=== PATIENT | female | born 1940 ===

== ENCOUNTER 2018-10-06 15:59 | Outpatient (REF) | payer MEDICARE, SELFPAY ==
[2018-10-06 21:16] LABS: Abs Immature Grans 0.01 k/cumm (0.0-0.09); Absolute Basophil Count 0.02 k/cumm (0.0-0.2); Absolute Eosinophil Count 0.02 k/cumm (0.0-0.7); Absolute Lymphocyte Count 1.55 k/cumm (1.2-3.4); Basophils % 0.3; Eosinophils % 0.3; HCT 34.7 % (36.0-46.0); HGB 11.1 g/dL (12.0-15.5); Immature Grans % 0.2; Lymphocytes % 25.8; Mean Corpuscular Hemoglobin 28.8 pg (27.0-33.0); Mean Corpuscular Volume 90.1 fL (80-95); Mean Platelet Volume 8.9 fL (8.0-11.0); Monocytes % 8.3; Neutrophils % 65.1; Platelet Count 328 x1000/uL (130-400); RBC 3.85 m/cumm (4.00-5.20); RBC Distribution Width 11.9 % (11.7-14.6)
[2018-10-06 21:49] LABS: TSH (W/Ref FT4) 0.02 uIU/mL (0.358-3.74); Vitamin B12 494 pg/mL (193-986)
[2018-10-06 22:14] LABS: FREE T4 1.65 ng/dL (0.76-1.46)
[2018-10-09 12:04] LABS: Thyrotropin Receptor Ab <1.00 IU/L
== END 2018-10-06 16:19 ==
LOC: NCHCN 15:59
PROVIDERS: PCP Family Medicine; Visit Provider Family Medicine
DX: R00.2 Palpitations (principal); R00.0 Tachycardia, unspecified; R53.83 Other fatigue; M54.2 Cervicalgia; E05.90 Thyrotoxicosis, unspecified without thyrotoxic crisis or storm
CPT/HCPCS: 82607; 83735; 84235; 84439; 84443; 85025

== ENCOUNTER 2018-11-02 15:53 | Outpatient (REF) | payer MEDICARE, BC, SELFPAY ==
[2018-11-03 11:31] LABS: FREE T4 1.11 ng/dL (0.76-1.46)
[2018-11-03 18:09] LABS: T3, Total 126 ng/dl (97-169)
== END 2018-11-02 16:13 ==
LOC: NCHCN 15:53
PROVIDERS: PCP Family Medicine; Visit Provider Family Medicine
DX: E06.9 Thyroiditis, unspecified (principal)
CPT/HCPCS: 84439; 84443; 84480

== ENCOUNTER 2018-12-03 09:46 | Outpatient (REF) | payer MEDICARE, BC, SELFPAY ==
[2018-12-03 21:22] LABS: FREE T4 0.73 ng/dL (0.76-1.46); TSH 7.51 uIU/mL (0.358-3.74)
[2018-12-03 21:32] LABS: T4 6.9 ug/dL (4.5-12.5)
[2018-12-05 17:02] LABS: T3,Free 3.1 pg/ml (2.8-5.3)
[2018-12-05 17:17] LABS: T3, Total 111 ng/dl (97-169)
== END 2018-12-03 10:06 ==
LOC: NCHCN 09:46
PROVIDERS: Visit Provider Family Medicine
DX: E03.9 Hypothyroidism, unspecified (principal)
CPT/HCPCS: 84436; 84439; 84443; 84480; 84481

== ENCOUNTER 2019-01-04 10:20 | Outpatient (REF) | payer MEDICARE, BC, SELFPAY ==
[2019-01-05 06:08] LABS: HCT 39.5 % (36.0-46.0); HGB 12.9 g/dL (12.0-15.5); Mean Corp. HGB Concentration 32.7 g/dL (32.0-36.0); Mean Corpuscular Hemoglobin 29.1 pg (27.0-33.0); Mean Corpuscular Volume 89.2 fL (80-95); Mean Platelet Volume 10.1 fL (8.0-11.0); Platelet Count 171 x1000/uL (130-400); RBC 4.43 m/cumm (4.00-5.20); RBC Distribution Width 15.2 % (11.7-14.6); White Blood Cell Count 4.52 k/cumm (4.4-10.8)
[2019-01-05 06:49] LABS: Magnesium 1.9 mg/dL (1.8-2.4); TSH (W/Ref FT4) 4.52 uIU/mL (0.358-3.74)
[2019-01-05 08:15] LABS: FREE T4 0.68 ng/dL (0.76-1.46)
[2019-01-05 08:35] LABS: Hemoglobin A1C 6.1 % (4.5-6.2)
== END 2019-01-04 10:40 ==
LOC: NCHCN 10:20
PROVIDERS: PCP Family Medicine; Visit Provider Family Medicine
DX: R73.01 Impaired fasting glucose (principal); D64.9 Anemia, unspecified; E06.9 Thyroiditis, unspecified; K59.00 Constipation, unspecified
CPT/HCPCS: 85027; 83036; 83735; 84439; 84443

== ENCOUNTER 2019-08-30 08:12 | Outpatient (REF) | payer MEDICARE, BC, SELFPAY ==
[2019-08-30 21:47] LABS: ALT 44 U/L (14-59); AST 19 U/L (15-37); Albumin 4.2 g/dL (3.4-5.0); Alkaline Phosphatase 69 U/L (46-116); Anion Gap 8.8 mmol/L (3-11); BUN 13 mg/dL (7-18); Bilirubin, Total 0.6 mg/dL (0.2-1.0); CO2 29.2 mmol/L (21.0-32.0); CREATININE 0.72 mg/dL (0.55-1.02); Calcium 9.3 mg/dL (8.5-10.1); Chloride 105 mmol/L (98-107); Glucose 97 mg/dL (74-106); Potassium 4.1 mmol/L (3.5-5.1); Sodium 143 mmol/L (136-145); TSH (W/Ref FT4) 3.73 uIU/mL (0.36-3.74); Total Protein 6.6 g/dL (6.4-8.2)
== END 2019-08-30 08:32 ==
LOC: NCHCN 08:12
PROVIDERS: PCP Family Medicine; Visit Provider Family Medicine
DX: E06.9 Thyroiditis, unspecified (principal); I10 Essential (primary) hypertension; R73.03 Prediabetes; E78.70 Disorder of bile acid and cholesterol metabolism, unspecified
CPT/HCPCS: 80053; 83036; 84443

== ENCOUNTER 2020-02-28 11:30 | Outpatient (REF) | payer MEDICARE, BC, SELFPAY ==
[2020-02-28 20:59] LABS: ALT 41 U/L (14-59); AST 24 U/L (15-37); Albumin 4.1 g/dL (3.4-5.0); Alkaline Phosphatase 74 U/L (46-116); Anion Gap 6.3 mmol/L (3-11); BUN 14 mg/dL (7-18); Bilirubin, Total 0.5 mg/dL (0.2-1.0); CO2 28.7 mmol/L (21.0-32.0); Calcium 9.3 mg/dL (8.5-10.1); Chloride 103 mmol/L (98-107); Glucose 98 mg/dL (74-106); Potassium 4.2 mmol/L (3.5-5.1); Sodium 138 mmol/L (136-145); TSH 2.61 uIU/mL (0.36-3.74); Total Protein 6.5 g/dL (6.4-8.2)
[2020-02-28 21:30] LABS: Calculated LDL 74 mg/dL (<100); Cholesterol 155 mg/dL (<200); HDL Cholesterol 70 mg/dL (40-60); Triglyceride 56 mg/dL (<150)
== END 2020-02-28 11:50 ==
LOC: NCHCN 11:30
PROVIDERS: PCP Family Medicine; Visit Provider Family Medicine
DX: E06.9 Thyroiditis, unspecified (principal); I10 Essential (primary) hypertension; E78.70 Disorder of bile acid and cholesterol metabolism, unspecified
CPT/HCPCS: 80053; 80061; 84443

== ENCOUNTER 2020-08-28 09:46 | Outpatient (REF) | payer MEDICARE, BC, SELFPAY ==
[2020-08-28 22:36] LABS: Hemoglobin A1C 5.6 % (<5.7)
[2020-08-28 22:52] LABS: TSH (W/Ref FT4) 2.16 uIU/mL (0.36-3.74)
== END 2020-08-28 10:06 ==
LOC: NCHCN 09:46
PROVIDERS: PCP Family Medicine; Visit Provider Family Medicine
DX: R73.03 Prediabetes (principal); E06.9 Thyroiditis, unspecified
CPT/HCPCS: 83036; 84443

== ENCOUNTER 2021-08-27 16:04 | Outpatient (REF) | payer MEDICARE, BC, SELFPAY ==
[2021-08-27 22:37] LABS: TSH (W/Ref FT4) 1.82 uIU/mL (0.36-3.74)
== END 2021-08-27 16:05 | disposition home or self-care (01) ==
LOC: NCHCN 16:04
PROVIDERS: PCP Family Medicine; Visit Provider Family Medicine
DX: E04.2 Nontoxic multinodular goiter (principal)
CPT/HCPCS: 84443

== ENCOUNTER 2023-02-26 12:39 | Outpatient (REF) | payer MEDICARE, BC, SELFPAY ==
--- OUTSIDE RECORDS SUMMARY | 2023-02-26 12:42 | XMS_ITS | CCD ---
Author Name Unknown Address [address] [place] [address] [phone] Organization Unknown Address [address] [place] [address] [phone] Care Team Providers Care Director Erp Name Role Phone PRABHU NOEL MD Attending Physician [phone] Vital Signs Unknown or Not Available. Allergies Allergy Code Allergy Type Reaction Status No Known Drug Allergies 0 No known drug allergies Active Procedures Procedure Code Procedure Type Date Neuroplasty &/Or Transpositi on; Median Nerve At Carpal Tunnel 43079 CPT 05/21/2021 History of Immunizations Unknown or Not Available. Problems Problem Code Start Date Resolved Date Status Hypertension [id number] 12/28/2021 Resolved Hyperlipidemia 80583744 12/28/2021 Resolved Results Unknown or Not Available. Active Medications Medications Administered During Visit Medication Dose Units Frequency Route Date/Time of Last Dose CEPHALEXIN CAPSULE: 500MG 1000 MG X1 PO 05/21/2021 08:55 ACETAMINOPHEN TABLET: 325MG 975 MG X1 PO 05/21/2021 08:55 CELECOXIB CAPSULE: 100MG 200 MG X1 PO 05/21/2021 08:55 Encounters Encounter Diagnosis Diagnosis Code Start Date Carpal tunnel syndrome, right upper limb G5601 05/21/2021 Social History Smoking Status Code Start Date End Date Never smoker [id number] Patient Decision Aids Unknown or Not Available. Discharge Instructions You were admitted to [facility] on 05/21/2021 08:09 with a principal diagnosis of Carpal tunnel syndrome, right upper limb You had the following procedures done:Neuroplasty &/Or Transposition; Median Nerve At Carpal Tunnel You were discharged from [facility] on 05/21/2021 10:06 Should you have any questions prior to discharge, please contact a member of your healthcare team. If you have left the hospital and have any questions, please contact your primary care physician. Chief Complaint and Reason For Visit Chief Complaint Date of Onset RIGHT CARPAL TUNNEL RELEASE Function Status Unknown or Not Available. Plan of Care Unknown or Not Available. Referral/Transition of Care Unknown or Not Available.
--- OUTSIDE RECORDS SUMMARY | 2023-02-26 12:42 | XMS_ITS | CCD ---
Author Name Unknown Address [address] [place] [address] [phone] Organization Unknown Address [address] [place] [address] [phone] Care Team Providers Care Senior Front End Developer Name Role Phone YASMINE CHAKRABORTY Attending Physician [phone] Vital Signs Unknown or Not Available. Allergies Allergy Code Allergy Type Reaction Status No Known Drug Allergies 0 No known drug allergies Active Procedures Unknown or Not Available. History of Immunizations Unknown or Not Available. Problems Unknown or Not Available. Results Unknown or Not Available. Active Medications Unknown or Not Available. Medications Administered During Visit Unknown or Not Available. Encounters Encounter Diagnosis Diagnosis Code Start Date Inconclusive mammogram R922 2 Social History Smoking Status Code Start Date End Date Never smoker [id number] Patient Decision Aids Unknown or Not Available. Discharge Instructions You were admitted to [facility] on 05/12/2022 08:15 with a principal diagnosis of Inconclusive mammogram You were discharged from [facility] on 05/12/2022 08:15 Should you have any questions prior to discharge, please contact a member of your healthcare team. If you have left the hospital and have any questions, please contact your primary care physician. Chief Complaint and Reason For Visit Chief Complaint Date of Onset 6 MONTH FU Function Status Unknown or Not Available. Plan of Care Unknown or Not Available. Referral/Transition of Care Unknown or Not Available.
--- OUTSIDE RECORDS SUMMARY | 2023-02-26 12:42 | XMS_ITS | CCD ---
Author Name Unknown Address [address] [place] [address] [phone] Organization Unknown Address [address] [place] [address] [phone] Care Team Providers Care Grader Green Meat Name Role Phone PRABHU NOEL MD Attending Physician [phone] Vital Signs Unknown or Not Available. Allergies Allergy Code Allergy Type Reaction Status No Known Drug Allergies 0 No known drug allergies Active Procedures Unknown or Not Available. History of Immunizations Unknown or Not Available. Problems Problem Code Start Date Resolved Date Status Hypertension 10867463 12/28/2021 Resolved Hyperlipidemia 30136811 12/28/2021 Resolved Results Unknown or Not Available. Active Medications Unknown or Not Available. Medications Administered During Visit Unknown or Not Available. Encounters Encounter Diagnosis Diagnosis Code Start Date Procedure on nervous system [id number] 06/2021 Social History Smoking Status Code Start Date End Date Never smoker 246261103 Patient Decision Aids Unknown or Not Available. Discharge Instructions You were admitted to [facility] on 06/13/2021 11:20 with a principal diagnosis of Encounter for surgical aftercare following surgery on the nervous system You were discharged from [facility] on 06/13/2021 11:20 Should you have any questions prior to discharge, please contact a member of your healthcare team. If you have left the hospital and have any questions, please contact your primary care physician. Chief Complaint and Reason For Visit Unknown or Not Available. Function Status Unknown or Not Available. Plan of Care Unknown or Not Available. Referral/Transition of Care Unknown or Not Available.
--- OUTSIDE RECORDS SUMMARY | 2023-02-26 12:42 | XMS_ITS | CCD ---
Author Name Unknown Address [address] [place] [address] [id number] Organization Unknown Address [address] [place] [address] [phone] Care Team Providers Care Furniture Mechanic Name Role Phone PRABHU NOEL MD Attending Physician [phone] Vital Signs Unknown or Not Available. Allergies Allergy Code Allergy Type Reaction Status No Known Drug Allergies 0 No known drug allergies Active Procedures Procedure Code Procedure Type Date Neuroplasty &/Or Transpositi on; Median Nerve At Carpal Tunnel 61055 CPT 06/04/2021 History of Immunizations Unknown or Not Available. Problems Problem Code Start Date Resolved Date Status Hypertension 99777818 12/28/2021 Resolved Hyperlipidemia 85877079 12/28/2021 Resolved Results Unknown or Not Available. Active Medications Medications Administered During Visit Medication Dose Units Frequency Route Date/Time of Last Dose CEPHALEXIN CAPSULE: 500MG 1000 MG X1 PO 06/04/2021 08:30 Encounters Encounter Diagnosis Diagnosis Code Start Date Carpal tunnel syndrome, left upper limb G5602 06/04/2021 Social History Smoking Status Code Start Date End Date Never smoker 141406251 Patient Decision Aids Unknown or Not Available. Discharge Instructions You were admitted to [facility] on 06/04/2021 08:05 with a principal diagnosis of Carpal tunnel syndrome, left upper limb You had the following procedures done:Neuroplasty &/Or Transposition; Median Nerve At Carpal Tunnel You were discharged from [facility] on 06/04/2021 09:46 Should you have any questions prior to discharge, please contact a member of your healthcare team. If you have left the hospital and have any questions, please contact your primary care physician. Chief Complaint and Reason For Visit Chief Complaint Date of Onset LEFT CARPAL TUNNEL RELEASE Function Status Unknown or Not Available. Plan of Care Unknown or Not Available. Referral/Transition of Care Unknown or Not Available.
--- OUTSIDE RECORDS SUMMARY | 2023-02-26 12:42 | XMS_ITS | CCD ---
Author Name Unknown Address [address] [place] [address] [phone] Organization Unknown Address [address] [place] [address] [phone] Care Team Providers Care Trolley Car Mechanic Name Role Phone PRABHU NOEL MD Attending Physician [phone] Vital Signs Unknown or Not Available. Allergies Allergy Code Allergy Type Reaction Status No Known Drug Allergies 0 No known drug allergies Active Procedures Procedure Code Procedure Type Date Neuroplasty &/Or Transpositi on; Median Nerve At Carpal Tunnel 10091 CPT 05/21/2021 History of Immunizations Unknown or Not Available. Problems Problem Code Start Date Resolved Date Status Hypertension 32860867 12/28/2021 Resolved Hyperlipidemia 40791077 12/28/2021 Resolved Results Unknown or Not Available. Active Medications Unknown or Not Available. Medications Administered During Visit Unknown or Not Available. Encounters Encounter Diagnosis Diagnosis Code Start Date Carpal tunnel syndrome, right upper limb G5601 05/21/2021 Social History Smoking Status Code Start Date End Date Never smoker [id number] Patient Decision Aids Unknown or Not Available. Discharge Instructions You were admitted to [facility] on 05/21/2021 01:28 with a principal diagnosis of Carpal tunnel syndrome, right upper limb You had the following procedures done:Neuroplasty &/Or Transposition; Median Nerve At Carpal Tunnel You were discharged from [facility] on 05/21/2021 01:28 Should you have any questions prior to [...]
--- OUTSIDE RECORDS SUMMARY | 2023-02-26 12:42 | XMS_ITS | CCD ---
Author Name Unknown Address [address] [place] [address] [phone] Organization Unknown Address [address] [place] [address] [phone] Care Team Providers Care Lumber Yard Worker Name Role Phone YASMINE CHAKRABORTY MD Attending Physician [phone] Vital Signs Unknown or Not Available. Allergies Allergy Code Allergy Type Reaction Status No Known Drug Allergies 0 No known drug allergies Active Procedures Unknown or Not Available. History of Immunizations Unknown or Not Available. Problems Problem Code Start Date Resolved Date Status Hypertension 69522685 12/28/2021 Resolved Hyperlipidemia 77187395 12/28/2021 Resolved Results Unknown or Not Available. Active Medications Unknown or Not Available. Medications Administered During Visit Unknown or Not Available. Encounters Encounter Diagnosis Diagnosis Code Start Date Other abnormal and inconclus macho findings on diagnostic imaging of breast R928 03/21/2021 Social History Smoking Status Code Start Date End Date Never smoker 017784398 Patient Decision Aids Unknown or Not Available. Discharge Instructions You were admitted to [facility] on 03/21/2021 14:01 with a principal diagnosis of Other abnormal and inconclusive findings on diagnostic imaging of breast You were discharged from [facility] on 03/21/2021 14:01 Should you have any questions prior to [...]
--- OUTSIDE RECORDS SUMMARY | 2023-02-26 12:42 | XMS_ITS | CCD ---
Author Name Unknown Address [address] [place] [address] [phone] Organization Unknown Address [address] [place] [address] [phone] Care Team Providers Care Postal Service Window Clerk Name Role Phone ABRAHAN ESTRELLA Attending Physician [phone] TONY JONES Er Physician [phone] JOSE FRANCISCO Damian Registered Nurse [phone] Vital Signs Vital Sign Value Unit Date/Time Recent/Initial ? BMI (Body Mass Index) 21.95 kg/m^2 12/28/2021 09: 57 Initial VS Weight Measured 120 lbs 12/28/2021 09:57 Ini tial VS Height 62 in 12/28/2021 09:57 Initial VS BSA (Body Surface Area) 1.54 m^2 12/28/2021 0 9:57 Initial VS BP Systolic 173 mmHg 12/28/2021 09:57 Initial VS BP Diastolic 82 mmHg 12/28/2021 09:57 Initia l VS Respiratory Rate 16 bpm 12/28/2021 09:57 In itial VS Heart Rate 82 bpm 12/28/2021 09:57 Initial VS O2 % BldC Oximetry 98 % 12/28/2021 09:57 Initial VS Body Temperature 35.5 degrees 12/28/2021 09:57 In itial VS Allergies Allergy Code Allergy Type Reaction Status No Known Drug Allergies 0 No known drug allergies Active Procedures Unknown or Not Available. History of Immunizations Unknown or Not Available. Problems Problem Code Start Date Resolved Date Status Hypertension 04820473 12/28/2021 Resolved Hyperlipidemia 79568869 12/28/2021 Resolved Results Unknown or Not Available. Active Medications Medications Administered During Visit Medication Dose Units Frequency Route Date/Time of Last Dose DOXYCYCLINE TABLET: 100MG 200 MG X1 PO 12/28/2021 10:38 Encounters Encounter Diagnosis Diagnosis Code Start Date Insect bite (nonvenomous) of right forearm, initial encounter [id number] 12/28/2021 Social History Smoking Status Code Start Date End Date Never smoker 599332981 Patient Decision Aids Unknown or Not Available. Discharge Instructions You were admitted to [facility] on 12/28/2021 09:44 with a principal diagnosis of Insect bite (nonvenomous) of right forearm, initial encounter You were discharged from [facility] on 12/28/2021 10:42 Should you have any questions prior to discharge, please contact a member of your healthcare team. If you have left the hospital and have any questions, please contact your primary care physician. Chief Complaint and Reason For Visit Chief Complaint Date of Onset TICKS ON BODY Function Status Unknown or Not Available. Plan of Care Unknown or Not Available. Referral/Transition of Care Unknown or Not Available.
--- OUTSIDE RECORDS SUMMARY | 2023-02-26 12:43 | XMS_ITS | CCD ---
Author Name Unknown Address [address] [place] [address] [phone] Organization Unknown Address [address] [place] [address] [phone] Care Team Providers Care Certified Pharmacy Tech Name Role Phone YASMINE CHAKRABORTY Attending Physician [phone] Vital Signs Unknown or Not Available. Allergies Allergy Code Allergy Type Reaction Status No Known Drug Allergies 0 No known drug allergies Active Procedures Unknown or Not Available. History of Immunizations Unknown or Not Available. Problems Unknown or Not Available. Results COMPREHENSIVE METABOLIC PANE L (CMP) - Collect Date/Time: 08/19/2022 08:43 Test Name Code Test Result Test Units Test Ref Rang e GLUCOSE 2345-7 105 mg/dL L=70 H=116 BUN 3094-0 12 mg/dL L=6 H=25 CREATININE 2160-0 0.61 mg/dL L=0.51 H=0.95 SODIUM SERUM 2951-2 140 mmol/L L=136 H=145 POTASSIUM SERUM 2823-3 4.2 mmol/L L=3.4 H=5 .2 CHLORIDE SERUM 2075-0 104 mmol/L L=96 H=110 CARBON DIOXIDE (CO2) 2028-9 28 mmol/L L=22 H=34 ANION GAP 10585-8 7.8 mmol/L CALCIUM SERUM 02462-4 9.0 mg/dL L=8.2 H=10. 2 BILIRUBIN TOTAL 1975-2 0.6 mg/dL L=0.0 H=1 .3 ALK. PHOS. 6768-6 69 U/L L=46 H=116 SGOT (AST) 1920-8 26 U/L L=15 H=37 SGPT (ALT) 1742-6 48 U/L L=12 H=78 TOTAL PROTEIN 2885-2 7.0 gm/dL L=6.0 H=8.0 ALBUMIN 1751-7 4.1 gm/dL L=3.4 H=5.0 AGE 81 years eGFR (non-Afr.Amer.) 17691-0 95 mL/min eGFR (Afr-South Korean) 12933-5 114 mL/min HEMOGLOBIN A1C* - Collect Da te/Time: 08/19/2022 08:43 Test Name Code Test Result Test Units Test Ref Rang e Hgb A1c 4548-4 6.1 % L=3.8 H=5.7 MEAN BLOOD GLUCOSE 07790-1 117 mg/dL LIPID PANEL* - Collect Date/ Time: 08/19/2022 08:43 Test Name Code Test Result Test Units Test Ref Rang e CHOLESTEROL 2093-3 157 mg/dL L=0 H=200 TRIGLYCERIDES 2571-8 71 mg/dL L=57 H=256 HDL 2085-9 78 mg/dL L=38 H=92 non-HDL-C 65678-9 79 mg/dL L=0 H=160 LDL (CALC) 67429-3 65 mg/dL L=0 H=130 % HDL 49.7 % Chol/HDL Ratio 9830-1 2.0 L=0.0 H=4. 4 CHD Relative Risk 0.5 x Avg L=0.0 H =1.0 LDL/HDL Ratio 02900-6 0.8 L=0.0 H=3.2 CHD Relative Risk. 0.2 x Avg L=0.0 H=1.0 FASTING STATUS: FASTING N/A THYROID TESTING CASCADE* - C ollect Date/Time: 08/19/2022 08:43 Test Name Code Test Result Test Units Test Ref Rang e TSH. 3014-8 2.730 uIU/mL L=0.360 H=3.74 0 Active Medications Unknown or Not Available. Medications Administered During Visit Unknown or Not Available. Encounters Encounter Diagnosis Diagnosis Code Start Date Adult health examination [id number] 022 Social History Smoking Status Code Start Date End Date Never smoker 571974086 Patient Decision Aids Unknown or Not Available. Discharge Instructions You were admitted to [facility] on 08/19/2022 08:23 with a principal diagnosis of Encounter for general adult medical examination without abnormal findings You had the following tests done:COMPREHENSIVE METABOLIC PANEL (CMP)HEMOGLOBIN A1C*LIPID PANEL*THYROID TESTING CASCADE* You were discharged from [facility] on 08/19/2022 08:23 Should you have any questions prior to [...]
--- OUTSIDE RECORDS SUMMARY | 2023-02-26 12:43 | XMS_ITS | CCD ---
Author Name Unknown Address [address] [place] [address] [phone] Organization Unknown Address [address] [place] [address] [phone] Care Team Providers Care Cook Starch Name Role Phone MARI GASPAR Attending Physician [phone] MARI GASPAR Er Physician 2 [phone] SURAJ Collins Registered Nurse [phone] Vital Signs Vital Sign Value Unit Date/Time Recent/Initial ? BMI (Body Mass Index) 21.95 kg/m^2 07/05/2022 08: 59 Initial VS Weight Measured 120 lbs 07/05/2022 08:59 Ini tial VS Height 62 in 07/05/2022 08:59 Initial VS BSA (Body Surface Area) 1.54 m^2 07/05/2022 0 8:59 Initial VS BP Systolic 140 mmHg 07/05/2022 08:59 Initial VS BP Diastolic 77 mmHg 07/05/2022 08:59 Initia l VS Heart Rate 73 bpm 07/05/2022 08:59 Initial VS O2 % BldC Oximetry 100 % 07/05/2022 08:59 Initial VS Body Temperature 36 degrees 07/05/2022 08:59 In itial VS BP Systolic 123 mmHg 07/05/2022 10:25 Most Re cent VS BP Diastolic 75 mmHg 07/05/2022 10:25 Most R ecent VS Respiratory Rate 16 bpm 07/05/2022 10:25 In itial VS Heart Rate 63 bpm 07/05/2022 10:25 Most Rec ent VS O2 % BldC Oximetry 98 % 07/05/2022 10:25 Most Recent VS Allergies Allergy Code Allergy Type Reaction Status No Known Drug Allergies 0 No known drug allergies Active Procedures Unknown or Not Available. History of Immunizations Unknown or Not Available. Problems Unknown or Not Available. Results Unknown or Not Available. Active Medications Medications Administered During Visit Medication Dose Units Frequency Route Date/Time of Last Dose PredniSONE TABLET: 20MG 40 MG X1 PO 07/05/2022 10:31 Encounters Encounter Diagnosis Diagnosis Code Start Date Rash and other nonspecific skin eruption R21 07/05/2022 Social History Smoking Status Code Start Date End Date Never smoker 137797230 Patient Decision Aids Unknown or Not Available. Discharge Instructions You were admitted to [facility] on 07/05/2022 08:50 with a principal diagnosis of Rash and other nonspecific skin eruption You were discharged from [facility] on 07/05/2022 10:37 Should you have any questions prior to discharge, please contact a member of your healthcare team. If you have left the hospital and have any questions, please contact your primary care physician. Chief Complaint and Reason For Visit Chief Complaint Date of Onset BLOTCHING SWELLING AND ITCHING Function Status Unknown or Not Available. Plan of Care Unknown or Not Available. Referral/Transition of Care Unknown or Not Available.
--- OUTSIDE RECORDS SUMMARY | 2023-02-26 12:43 | XMS_ITS | CCD ---
Author Name Unknown Address [address] [place] [address] [phone] Organization Unknown Address [address] [place] [address] [phone] Care Team Providers Care Motorcycle Repairer Name Role Phone YASMINE CHAKRABORTY Attending Physician [phone] Vital Signs Unknown or Not Available. Allergies Allergy Code Allergy Type Reaction Status No Known Drug Allergies 0 No known drug allergies Active Procedures Unknown or Not Available. History of Immunizations Unknown or Not Available. Problems Problem Code Start Date Resolved Date Status Hypertension 50379024 12/28/2021 Resolved Hyperlipidemia 01571162 12/28/2021 Resolved Results COMPREHENSIVE METABOLIC PANE L (CMP) - Collect Date/Time: 08/19/2021 07:55 Test Name Code Test Result Test Units Test Ref Rang e GLUCOSE 2345-7 111 mg/dL L=70 H=116 BUN 3094-0 12 mg/dL L=6 H=25 CREATININE 2160-0 0.75 mg/dL L=0.51 H=0.95 SODIUM SERUM 2951-2 141 mmol/L L=136 H=145 POTASSIUM SERUM 2823-3 4.5 mmol/L L=3.4 H=5 .2 CHLORIDE SERUM 2075-0 102 mmol/L L=96 H=110 CARBON DIOXIDE (CO2) 2028-9 32 mmol/L L=22 H=34 ANION GAP 86092-6 7.3 mmol/L CALCIUM SERUM 10309-1 9.7 mg/dL L=8.2 H=10. 2 BILIRUBIN TOTAL 1975-2 0.6 mg/dL L=0.0 H=1 .3 ALK. PHOS. 6768-6 72 U/L L=46 H=116 SGOT (AST) 1920-8 19 U/L L=15 H=37 SGPT (ALT) 1742-6 37 U/L L=12 H=78 TOTAL PROTEIN 2885-2 7.4 gm/dL L=6.0 H=8.0 ALBUMIN 1751-7 4.3 gm/dL L=3.4 H=5.0 AGE 80 years eGFR (non-Afr.Amer.) 14807-0 75 mL/min eGFR (Afr-Fijian) 28702-9 90 mL/min HEMOGLOBIN A1C* - Collect Da te/Time: 08/19/2021 07:55 Test Name Code Test Result Test Units Test Ref Rang e Hgb A1c 4548-4 5.6 % L=3.8 H=5.7 MEAN BLOOD GLUCOSE 31198-6 100 mg/dL LIPID PANEL - Collect Date/T gilberto: 08/19/2021 07:55 Test Name Code Test Result Test Units Test Ref Rang e CHOLESTEROL 2093-3 169 mg/dL L=0 H=200 TRIGLYCERIDES 2571-8 94 mg/dL L=57 H=256 HDL 2085-9 73 mg/dL L=38 H=92 non-HDL-C 04565-2 96 mg/dL L=0 H=160 LDL (CALC) 14929-4 77 mg/dL L=0 H=130 % HDL 43.2 % Chol/HDL Ratio 9830-1 2.3 L=0.0 H=4. 4 CHD Relative Risk 0.5 x Avg L=0.0 H =1.0 LDL/HDL Ratio 45789-2 1.1 L=0.0 H=3.2 CHD Relative Risk. 0.3 x Avg L=0.0 H=1.0 FASTING STATUS: FASTING N/A Active Medications Unknown or Not Available. Medications Administered During Visit Unknown or Not Available. Encounters Encounter Diagnosis Diagnosis Code Start Date Essential hypertension 45214227 Social History Smoking Status Code Start Date End Date Never smoker 640557211 Patient Decision Aids Unknown or Not Available. Discharge Instructions You were admitted to [facility] on 08/19/2021 07:44 with a principal diagnosis of Essential (primary) hypertension You had the following tests done:COMPREHENSIVE METABOLIC PANEL (CMP)HEMOGLOBIN A1C*LIPID PANEL You were discharged from [facility] on 08/19/2021 07:44 Should you have any questions prior to [...]
--- OUTSIDE RECORDS SUMMARY | 2023-02-26 12:43 | XMS_ITS | CCD ---
Author Name Unknown Address [address] [place] [address] [phone] Organization Unknown Address [address] [place] [address] [phone] Care Team Providers Care Hammerer Helper Name Role Phone YASMINE CHAKRABORTY Attending Physician [phone] Vital Signs Unknown or Not Available. [...] Diagnosis Code Start Date Inconclusive mammogram R922 3 Social History Smoking Status Code Start Date End Date Never smoker 960534870 Patient Decision Aids Unknown or Not Available. Discharge Instructions You were admitted to [facility] on 11/10/2022 09:40 with a principal diagnosis of Inconclusive mammogram You were discharged from [facility] on 11/10/2022 09:40 Should you have any questions prior to discharge, please contact a member of your healthcare team. If you have left the hospital and have any questions, please contact your primary care physician. Chief Complaint and Reason For Visit Chief Complaint Date of Onset SCREENING Function Status Unknown or Not Available. Plan of Care Unknown or Not Available. Referral/Transition of Care Unknown or Not Available.
--- OUTSIDE RECORDS SUMMARY | 2023-02-26 12:44 | XMS_ITS | CCD ---
Author Name Unknown Address [address] [place] [address] [phone] Organization Unknown Address [address] [place] [address] [phone] Care Team Providers Care Die Cutter Name Role Phone UNLISTED REQUESTED, PROVIDER - Attending Physici an 0 Vital Signs Unknown or Not Available. Allergies Allergy Code Allergy Type Reaction Status No Known Drug Allergies 0 No known drug allergies Active Procedures Unknown or Not Available. History of Immunizations Unknown or Not Available. Problems Problem Code Start Date Resolved Date Status Hypertension 99320997 12/28/2021 Resolved Hyperlipidemia 84766738 12/28/2021 Resolved Results Unknown or Not Available. Active Medications Unknown or Not Available. Medications Administered During Visit Unknown or Not Available. Encounters Encounter Diagnosis Diagnosis Code Start Date Inconclusive mammography finding [id number] 10/28/2021 Social History Smoking Status Code Start Date End Date Never smoker [id number] Patient Decision Aids Unknown or Not Available. Discharge Instructions You were admitted to [facility] on 10/28/2021 08:41 with a principal diagnosis of Other abnormal and inconclusive findings on diagnostic imaging of breast You were discharged from [facility] on 10/28/2021 08:41 Should you have any questions prior to [...]
--- OUTSIDE RECORDS SUMMARY | 2023-02-26 12:44 | XMS_ITS | CCD ---
Author Name Unknown Address [address] [place] [address] [phone] Organization Unknown Address [address] [place] [address] [phone] Care Team Providers Care Leading Firefighter Name Role Phone YASMINE CHAKRABORTY Attending Physician [phone] Vital Signs Unknown or Not Available. Allergies Allergy Code Allergy Type Reaction Status No Known Drug Allergies 0 No known drug allergies Active Procedures Unknown or Not Available. History of Immunizations Unknown or Not Available. Problems Problem Code Start Date Resolved Date Status Hypertension [id number] 12/28/2021 Resolved Hyperlipidemia [id number] 12/28/2021 Resolved Results Unknown or Not Available. Active Medications Unknown or Not Available. Medications Administered During Visit Unknown or Not Available. Encounters Encounter Diagnosis Diagnosis Code Start Date Screening mammography [id number] 10/23/2021 Social History Smoking Status Code Start Date End Date Never smoker [id number] Patient Decision Aids Unknown or Not Available. Discharge Instructions You were admitted to [facility] on 10/23/2021 10:42 with a principal diagnosis of Encounter for screening mammogram for malignant neoplasm of breast You were discharged from [facility] on 10/23/2021 10:42 Should you have any questions prior [...]
[2023-02-26 17:07] LABS: TSH (W/Ref FT4) 2.21 uIU/mL (0.36-3.74)
== END 2023-02-26 12:40 | disposition home or self-care (01) ==
LOC: NCHCN 12:39
PROVIDERS: PCP Family Medicine; Visit Provider Family Medicine
DX: R19.7 Diarrhea, unspecified (principal); Z86.39 Personal history of other endocrine, nutritional and metabolic disease
CPT/HCPCS: 84443

== ENCOUNTER 2024-09-07 16:08 | Outpatient (REF) | payer MEDICARE, BC, SELFPAY ==
[2024-09-07 16:49] LABS: ALT 31 U/L (14-59); AST 25 U/L (15-37); Albumin 4.1 g/dL (3.4-5.0); Alkaline Phosphatase 73 U/L (46-116); Anion Gap 6.2 mmol/L (3-11); BUN 12 mg/dL (7-18); Bilirubin, Total 0.49 mg/dL (0.2-1.0); CO2 29.8 mmol/L (21.0-32.0); CREATININE 0.7 mg/dL (0.55-1.02); Calcium 9.3 mg/dL (8.5-10.1); Chloride 105 mmol/L (98-107); Estimated GFR 86.83 (mL/min/1.73m2); FREE T4 0.85 ng/dL (0.76-1.46); Glucose 102 mg/dL (74-106); Potassium 4.5 mmol/L (3.5-5.1); Sodium 141 mmol/L (136-145); Total Protein 6.9 g/dL (6.4-8.2)
[2024-09-07 17:03] LABS: Calculated LDL 65 mg/dL (<100); Cholesterol 166 mg/dL (<200); HDL Cholesterol 91 mg/dL (40-60); Triglyceride 50 mg/dL (<150)
[2024-09-07 17:06] LABS: Hemoglobin A1C 5.8 % (<5.7)
== END 2024-09-07 16:09 | disposition home or self-care (01) ==
LOC: NCHCN 16:08
PROVIDERS: PCP Family Medicine; Visit Provider Family Medicine
DX: R73.03 Prediabetes (principal); E78.5 Hyperlipidemia, unspecified
CPT/HCPCS: 80053; 80061; 83036; 84439; 84443